=== PATIENT | male | born 1950 | race Caucasian/White ===

== ENCOUNTER → 2016-10-06 06:49 | Day surgery (SDC) | payer OTHER ==
--- NOTE | 2016-09-27 21:45 | HP ---
ADMISSION HISTORY AND PHYSICAL: DATE OF ADMISSION: 10/06/16 ATTENDING SURGEON: Dr. Alex Kumar (dictated by JORDANA Kelly). CHIEF COMPLAINT: Right inguinal hernia. HISTORY OF PRESENT ILLNESS: This is a 65-year-old male who states that he has had right inguinal hernia for many years; but over the last 3 years in particular, it has increased in size and in recent months has also been associated with increased discomfort as well as some numbness and increased swelling. He has not had any symptoms to suggest incarceration or strangulation. He did undergo prior left inguinal herniorrhaphy with subsequent repair of recurrence with mesh (the initial repair was a primary repair). He was seen in the office by Dr. Kumar on 08/05/16 at which time, exam showed an obvious right inguinal hernia, which was soft and reducible. The left side did show surgical incision and without any evidence of recurrence. Testes were otherwise normal and abdomen was otherwise benign. Dr. Kumar discussed with him the indications for repair, the risks, benefits, and alternatives and I have reviewed with him the expected perioperative course. The patient would like to proceed as scheduled with open repair of right inguinal hernia with mesh. PAST MEDICAL HISTORY: Obstructive sleep apnea (previously used CPAP, but stopped over the past year with improvement related to weight loss), BPH, rosacea, hypertension. 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 Velazquez, but no additional workup or treatment needed. He has a history of kidney and bladder stones (followed by Dr. Weiner). PAST SURGICAL HISTORY: Include transurethral resection of a bladder stone and stenting for a left ureteral stone in 2007, tonsillectomy remotely. MEDICATIONS: 1. Fibronectin 3 mg topically daily (uses for rosacea). 2. Doxazosin 2 mg once daily. 3. Vitamin D 1000 International Units once daily. 4. Vitamin B12 spray 1 spray once daily (what he remembers). 5. The patient also states that he uses an occasional nonspecified narcotic that he obtains from outside sources, approximately once weekly sometimes for pain, sometimes for mood enhancement. DRUG ALLERGIES: SULFA (rash). FAMILY HISTORY: Negative for anesthesia problems, bleeding or clotting disorders. SOCIAL HISTORY: The patient is . He has 1 child. 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 He denies use of tobacco. He drinks approximately 1 alcoholic drink per week. Recreational drug use as noted above. REVIEW OF SYSTEMS: General: No recent constitutional symptoms or acute illnesses. He has experienced an intentional weight loss of approximately 50 pounds over the last 13 months. Cardiovascular: No chest pain or palpitations. He states that the doxazosin was originally prescribed for hypertension rather than for BPH and that his blood pressure has been under good control. No history of heart murmur. Respiratory: No history of asthma, chronic cough, or shortness of breath. The patient has experienced a dry cough in recent months and states that he has an otherwise normal chest x-ray. GI: No problems reported. He has had multiple colonoscopies typically with polypectomies, but all benign (there is a family history of colon cancer, the most recent being within the past year or two). : BPH as noted. He has regular followup by Dr. Weiner. History of kidney and bladder stones. No recent problems. Endocrine: No diabetes or thyroid dysfunction. PHYSICAL EXAMINATION GENERAL: Well-nourished, well-developed male in no acute distress. VITAL SIGNS: Height 6 feet 3 inches, weight 221 pounds, blood pressure 116/70, pulse 68, respirations 16. HEENT: Pupils equal and round, reactive. EOMs intact. No conjunctival pallor. Oropharynx: Teeth in good repair. No intraoral lesions. NECK: No thyromegaly or masses. He has prominent anterior cervical nodes bilaterally. These are nontender. No additional palpable lymphadenopathy in the cervical or supraclavicular regions. LUNGS: Clear to auscultation. No wheezes. HEART: Regular rate and rhythm. No murmur noted. ABDOMEN: Soft, nontender to palpation. No palpable masses or organomegaly. Right groin hernia as per Dr. Kumar's exam. Not repeated today. EXTREMITIES: No edema. RECTAL: Not done. BACK: No spinous process or CVA tenderness. NEUROLOGIC: Grossly intact. SKIN: Warm and dry. No suspicious rashes or lesions noted. IMPRESSION: Right inguinal hernia. PLAN: Open repair, right inguinal hernia, with mesh. JORDANA FINN CC: Dr. Zackary Lambert * [id number]/[facility] #: [id number] [facility]
[~2016-10-06 06:49] MED LIST: Acetaminophen TAB* 325 MG PO PRN; Buffered Lidocaine 1% SYR 3ML* 3 ML/SYR SYRINGE INTRADERM ONE; Buffered Lidocaine 1% SYR 3ML* 3 ML/SYR SYRINGE ONE; Bupivacaine 0.5% W/EPI SDV* 30 ML VIAL ONE; Dexamethasone IV* 4 MG/ML 1 ML (4 MG) ONE; Famotidine IV* 10 MG/ML 2 ML (20 mg) ONE; HYDROcodone/ACETAMIN 5-325 MG* 1 TAB ONE; HYDROcodone/ACETAMIN 5-325 MG* 1 TAB PO PRN; KETAMINE HCL* 50 MG/ML 10 ML VIAL ONE; Ketorolac INJ* 30 MG/ML 1 ML VIAL ONE; Lidocaine 1% INJ* 10 MG/ML 30 ML SDV ONE; Lidocaine 2% MPF* 2 ML VIAL ONE; Midazolam* 1 MG/ML 2 ML VIAL (2 MG) ONE; Ondansetron INJ* 2 MG/ML VIAL IV PRN; PROCHLORPERAZINE INJ 5 MG/ML 2 ML VIAL IV PRN; Propofol* 10 MG/ML 20 ML BTL IV PUSH ONE; ceFAZolin 2 GM PREMIX (*) 2 GM/50 ML BAG IVPB ONE; fentaNYL* 50 MCG/ML 2 ML VIAL (100 MCG VIAL) IV PRN; fentaNYL* 50 MCG/ML 2 ML VIAL (100 MCG VIAL) ONE
[2016-10-06 11:15] VITALS: BP 136/83
--- NOTE | 2016-10-07 03:25 | OP ---
DATE OF OPERATION: 10/06/16 - [facility] DATE OF : 54 SURGEON: Alex Kumar MD FIELD SUPPORT REP: None. ANESTHESIOLOGIST: Dr. Peters. ANESTHESIA: LMAC anesthesia. PRE-OP DIAGNOSIS: Right inguinal hernia. POST-OP DIAGNOSIS: Right inguinal hernia. OPERATIVE PROCEDURE: Open right inguinal hernia repair with mesh. DESCRIPTION OF PROCEDURE: The patient was supine on the operating table. After adequate intravenous sedation, compression stockings, Sarah Hugger warmer, and intravenous antibiotics; the right groin was clipped and prepped with antiseptic; and draped in a sterile fashion. Local infiltrative anesthesia was administered. Approximately 7 cm incision was created and carried down to the tissue layers to the external oblique, which was opened in the direction of its fibers. Large indirect hernia was identified. The cremasterics were entered, the hernia was dissected free and reduced and a cone mesh plug was placed into the internal ring, sutured with 2-0 Polysorb. A second piece of mesh was placed over the inguinal floor, sutured at the tubercle at the transverse abdominis at the inguinal ligament. Tails were split, brought around the cord structures, and tacked down laterally. External oblique was closed over top with 2-0 Polysorb, Abilio's with 3-0 Polysorb, and skin with 4-0 Surgipro followed by sterile dressing. He tolerated the procedure well, was awakened, and brought to recovery in good condition. No complications. No drains. No pathologic specimens. Sponge and instrument counts correct. Estimated blood loss is 10 mL. CC: Alex Kumar MD; Zackary Lambert MD * [id number]/[facility] #: [id number] [facility]
== END | disposition home or self-care (01) ==
LOC: OR 06:49
PROVIDERS: ATTEND Surgery
DX: K40.90 Unilateral inguinal hernia, without obstruction or gangrene, not specified as recurrent (principal); G47.33 Obstructive sleep apnea (adult) (pediatric); I10 Essential (primary) hypertension
CPT/HCPCS: C1781; J0690; J1100; J1885; J2250; J2704; J3010

== ENCOUNTER 2017-01-09 07:09 | Emergency (ER) | payer OTHER ==
[2017-01-09 07:33] VITALS: BP 113/69
--- NOTE | 2017-01-09 07:54 | UC ---
Ear Complaint HPI - HPI Summary HPI Summary: The patient comes in today for: 1. Bilateral ear pain with left worse than right Onset: 1 week ago. Palliative/provocative: Irrigation helped for a while. Quality: Ache Region: Both ears. Severity: 10/04 Time: Constant. Associated symptoms: Previous treatment: irrigation, procaine ear drops. He felt that he had cerumen impactions so he irrigated his ears. AFter this, the hearing and ear discomfort was good, but then the ears started having problems again. Hearing: poor. Discharge: ear drops vs discharge--clear. * - History of Current Complaint Chief Complaint: UCEar Stated Complaint: EAR COMPLAINT Time Seen by Provider: 01/09/17 07:48 Hx Obtained From: Patient - Allergies/Home Medications Allergies/Adverse Reactions: Allergies Allergy/AdvReac Type Severity Reaction Status Date / Time Sulfa Drugs Allergy Intermediate Rash Verified 10/06/16 07:12 Home Medications: Home Medications Urinary Tract Medication 01/09/17 [History] PMH/Surg Hx/FS Hx/Imm Hx Previously Healthy: No - BPH, various pain, Rosacea. Endocrine History Of: Denies: Diabetes, Thyroid Disease Cardiovascular History Of: Reports: Hypertension Denies: Cardiac Disorders, Pacemaker/ICD, Myocardial Infarction, Congestive Heart Failure, Atrial Fibrillation, Deep Vein Thrombosis, Bleeding Disorders Respiratory History Of: Denies: COPD, Asthma, Bronchitis, Pneumonia, Pulmonary Embolism GI/ History Of: Reports: Gastroesophageal Reflux - No treatment after weight loss., Kidney Stones Denies: Ulcer, Gastrointestinal Bleed, Gall Bladder Disease, Diverticulitis, Renal Disease, Urosepsis Neurological History Of: Denies: TIA, CVA, Dementia, Seizures, Migraine Psychological History Of: Reports: Depression - MILD DEPRESSION. But he states that he takes morphine for "mood elevation. Denies: Anxiety, Bipolar Disorder, Schizophrenia, Post Traumatic Stress Disorder Cancer History Of: Denies: Lung Cancer, Colorectal Cancer, Breast Cancer, Prostate Cancer, Cervical Cancer Other History Of: Negative For: HIV, Hepatitis B, Hepatitis C, Anticoagulant Therapy - Surgical History Surgical History: Yes Surgery Procedure, Year, and Place: TRANSURETHRAL RESECTION OF A BLADDER STONE. left inguinaL hernia repair x2. stenting for a left ureteral stone 2007. tonsillectomy. inguinal hearnia repair - Family History Known Family History: Positive: Hypertension Negative: Cardiac Disease - Social History Occupation: Employed Full-time Alcohol Use: Rare Alcohol Amount: glass a wine weekly Substance Use Type: Other Substance Use Comment - Amount & Last Used: morphine Smoking Status (MU): Never Smoked Tobacco Review of Systems Constitutional: Negative Skin: Negative Eyes: Negative ENT: Ear Ache Respiratory: Negative Cardiovascular: Negative Gastrointestinal: Negative Genitourinary: Negative, Other - He states that he has "all kinds of urinary problems, but not related to ear problem." All Other Systems Reviewed And Are Negative: Yes Physical Exam Triage Information Reviewed: Yes Appearance: Well-Appearing, No Pain Distress, Well-Nourished Vital Signs: Initial Vital Signs Temp 98.1 F 01/09/17 07:16 Pulse 61 01/09/17 07:16 Resp 18 01/09/17 07:16 BP 113/69 01/09/17 07:16 Pulse Ox 97 01/09/17 07:16 Vital Signs Reviewed: Yes Eyes: Positive: Conjunctiva Clear. Negative: Discharge ENT: Positive: Hearing grossly normal, Other: - Both ear canals are red and swollen. They are mildly tender to touch.. Negative: Pharyngeal erythema, Nasal congestion, Nasal drainage, Tonsillar swelling, Tonsillar exudate Dental: Negative: Gross Decay/Caries @, Dental Fracture @ Neck: Positive: Supple, Nontender, No Lymphadenopathy. Negative: Nuchal Rigidity Respiratory: Positive: Lungs clear, No respiratory distress, No accessory muscle use. Negative: Crackles, Wheezing Cardiovascular: Positive: RRR, No Murmur Abdomen Description: Positive: Nontender, No Organomegaly, Soft. Negative: Distended, Guarding Musculoskeletal: Positive: Strength Intact, ROM Intact, No Edema Neurological: Positive: Alert, Muscle Tone Normal Psychological: Positive: Age Appropriate Behavior, Consolable Skin: Negative: rashes, breakdown Ear Complaint Course/Dx - Course Course Of Treatment: Ear mela were put in place and Cipro eye drops were used to saturate the ear mela. There was no cipro ear drops. - Differential Dx/Diagnosis Provider Diagnoses: bilateral otitis externa. Discharge - Discharge Plan Condition: Stable Disposition: HOME Patient Education Materials: Otitis Externa (ED) Referrals: Zackary Lambert MD [Primary Care Provider] - 1 Week (Please see your primary care provider in a week to see how well you are doing. If you get worse, please be seen sooner in the ER or through us.)
[2017-01-09] MEDS ORDERED: Ciprofloxacin 0.3% OPTH.SOL* 2.5 ML BTL BOTH EYES ONE (08:04)
[2017-01-09] MEDS ORDERED: Ciprofloxacin 0.3% OPTH.SOL* 2.5 ML BTL ONE (08:05)
[2017-01-09] MEDS ORDERED: Ciproflox/Dexameth OTIC.SUSP* 7.5 ML BTL BOTH EARS SCH (09:00)
== END 2017-01-09 08:30 | disposition home or self-care (01) ==
LOC: UCEAST 07:09
DX: H60.93 Unspecified otitis externa, bilateral (principal); I10 Essential (primary) hypertension; K21.9 Gastro-esophageal reflux disease without esophagitis; F32.9 Major depressive disorder, single episode, unspecified; Z88.2 Allergy status to sulfonamides; Z87.440 Personal history of urinary (tract) infections
CPT/HCPCS: 99212; A9270-GY; G0463

== ENCOUNTER 2019-01-22 07:24 | Day surgery (SDC) | payer OTHER ==
[~2019-01-22 07:24] MED LIST changes: -Buffered Lidocaine 1% SYR 3ML* 3 ML/SYR SYRINGE INTRADERM ONE; -Buffered Lidocaine 1% SYR 3ML* 3 ML/SYR SYRINGE ONE; +Buffered Lidocaine 1% SYRIN* 1 ML/SYRINGE INTRADERM ONE; -Bupivacaine 0.5% W/EPI SDV* 30 ML VIAL ONE; -Dexamethasone IV* 4 MG/ML 1 ML (4 MG) ONE; -Famotidine IV* 10 MG/ML 2 ML (20 mg) ONE; -HYDROcodone/ACETAMIN 5-325 MG* 1 TAB ONE; -HYDROcodone/ACETAMIN 5-325 MG* 1 TAB PO PRN; -KETAMINE HCL* 50 MG/ML 10 ML VIAL ONE; -Ketorolac INJ* 30 MG/ML 1 ML VIAL ONE; -Lidocaine 1% INJ* 10 MG/ML 30 ML SDV ONE; -Lidocaine 2% MPF* 2 ML VIAL ONE; -Midazolam* 1 MG/ML 2 ML VIAL (2 MG) ONE; -Ondansetron INJ* 2 MG/ML VIAL IV PRN; -PROCHLORPERAZINE INJ 5 MG/ML 2 ML VIAL IV PRN; -Propofol* 10 MG/ML 20 ML BTL IV PUSH ONE; -ceFAZolin 2 GM PREMIX (*) 2 GM/50 ML BAG IVPB ONE; -fentaNYL* 50 MCG/ML 2 ML VIAL (100 MCG VIAL) IV PRN; -fentaNYL* 50 MCG/ML 2 ML VIAL (100 MCG VIAL) ONE
[2019-01-22] MEDS ORDERED: Midazolam* 1 MG/ML 2 ML VIAL (2 MG) ONE (08:37)
[2019-01-22] MEDS ORDERED: Propofol* 10 MG/ML 20 ML BTL ONE (08:44)
--- NOTE | 2019-01-22 09:29 | OP ---
OPERATIVE REPORT: DATE OF OPERATION: 01/22/19 DATE OF : 54 SURGEON: Dr. Damien Matta. ALLIANCE MANAGER: None. ANESTHESIA: Topical with intravenous sedation. PRE-OP DIAGNOSIS: Cataract, right eye. POST-OP DIAGNOSIS: Cataract, right eye. OPERATIVE PROCEDURE: Phacoemulsification and cataract extraction with posterior chamber intraocular lens implant, right eye. COMPLICATIONS: None. BLOOD LOSS: None. OPERATIVE FINDINGS: The patient was brought to the operating room and received a small amount of int ravenous sedation. A drop of Tetracaine was placed in his right eye. She was prepped and draped in the usual sterile fashion for ophthalmic surgery and attention was directed to the right eye where a speculum was placed. A paracentesis was created at the 11 o'clock position and 0.1 cc of 1 percent p reservative-free Lidocaine was injected into the anterior chamber followed by DisCoVisc. The eye was digitally stabilized while a 2.75 mm keratome was used to create a triplanar clear corneal incision at the 9 o'clock position. A continuous curvilinear capsulorrhexis was created with a cystotome and Utrata forceps. BSS on a cannula was used to hydrodissect the lens from the capsule. Phacoemulsific ation was performed in a [id number] technique to create four fragments which were removed. R esidual cortical material was removed with irrigation and aspiration. DisCoVisc was used to inflate t he capsular bag and an [id number] 21.5 diopter lens was folded and inserted into the capsular bag. DisCo Visc was removed using irrigation and aspiration. BSS on a cannula was used to hydrate the corneal s troma and seal the wound. At the end of the case the pupil was round and the lens was centered. The eye was of normal pressure and the wound was water tight. The speculum was removed and topical Maxit rol ointment was placed on the surface of the eye. The eye was closed, patched and shielded and the patient was sent to the recovery room in stable condition with post operative instructions and follow -up appointment given. [id number]/[facility] #: [id number]
[2019-01-22 10:10] VITALS: BP 126/77
[2019-01-22] MEDS ORDERED: Tetracaine 0.5% OPTH.SOL 4 ML* 1 DROP BTL ONE (12:12)
[2019-01-22] MEDS ORDERED: Ketorolac 0.5% OPHTH (NF) 0.5 % 5 ML BTL ONE (12:12)
[2019-01-22] MEDS ORDERED: Neomycin/Polymy/Dex OPHTH.OIN* 3.5 GM ONE (12:12)
[2019-01-22] MEDS ORDERED: Cyclopentolate 1% OPTH.SOL* 2 ML BTL ONE (12:12)
[2019-01-22] MEDS ORDERED: Tropicamide 1% OPTH.SOL* BTL ONE (12:12)
[2019-01-22] MEDS ORDERED: Phenylephrine OPHTH SOL 2.5%* 2 ML ONE (12:12)
[2019-01-22] MEDS ORDERED: Lidocaine 1%* 5 ML VIAL ONE (12:12)
== END 2019-01-22 09:18 | disposition home or self-care (01) ==
LOC: OREAST 07:24
PROVIDERS: ATTEND Ophthalmology
DX: H25.11 Age-related nuclear cataract, right eye (principal); I10 Essential (primary) hypertension; G47.33 Obstructive sleep apnea (adult) (pediatric); K21.9 Gastro-esophageal reflux disease without esophagitis
CPT/HCPCS: A9270-GY; J2250; J2704; V2632